=== PATIENT | female | born 1990 | race Two or more races ===

== ENCOUNTER 2022-05-12 18:09 | Emergency (ER) | payer OTHER ==
[~2022-05-12] VITALS: Ht 157.5 cm; Wt 79.1 kg
[2022-05-12] MEDS ORDERED: SODIUM CHLORIDE 0.9% 1,000 ML IV ONE ×3 (18:45→22:00)
[2022-05-12 19:10] LABS: BASOPHILS % (AUTO) 0.4 % (0.0-2.0); EOSINOPHILS % (AUTO) 0.3 % (1.0-6.0); HEMATOCRIT 32.4 % (36-46); HEMOGLOBIN 10.9 g/dL (12.0-16.0); LYMPHOCYTES # (AUTO) 1.7 K/uL (1.0-4.8); MEAN CORPUSCULAR HEMOGLOBIN 29.2 pg (26.0-34.0); MEAN CORPUSCULAR HGB CONC 33.7 G/dL (31.0-37.0); MEAN CORPUSCULAR VOLUME 87 fL (80-100); MONOCYTES # (AUTO) 0.6 K/uL (0.1-1.0); MONOCYTES % (AUTO) 5.2 % (2.0-9.0); NEUTROPHILS # (AUTO) 8.5 K/uL (1.8-7.7); NEUTROPHILS % (AUTO) 78.1 % (40.0-70.0); PLATELET COUNT (AUTO) 264 K/uL (150-450); RED BLOOD CELL COUNT(AUTO) 3.74 MIL/uL (4.00-5.20); RED CELL DISTRIBUTION WIDTH 13.3 % (11.5-14.5)
[2022-05-12 19:38] LABS: ANION GAP 10 mmol/L (8-16); CALCIUM, TOTAL 9.3 mg/dL (8.8-10.5); CARBON DIOXIDE 23 mmol/L (22-29); CHLORIDE 103 mmol/L (98-107); CREATININE 0.53 mg/dL (0.60-1.30); GLUCOSE,RANDOM 90 mg/dL (70-110); POTASSIUM 3.8 mmol/L (3.5-5.1); SODIUM SERUM 136 mmol/L (136-145); UREA NITROGEN, BLOOD 12 mg/dL (7-18)
[2022-05-12 19:39] LABS: GLOMERULAR FILTR. RATE CALC > 60 mL/min (>60)
[2022-05-12 19:44] LABS: ALANINE AMINOTRANSFERASE 19 U/L (12-78); ALBUMIN 3.3 g/dL (3.4-5.0); ALKALINE PHOSPHATASE 64 U/L (46-116); ASPARTATE AMINOTRANSFERASE 14 U/L (15-37); BILIRUBIN,TOTAL 0.1 mg/dL (0.1-1.0); TOTAL PROTEIN, SERUM 6.9 g/dL (6.4-8.2)
[2022-05-12] MEDS ORDERED: ACETAMINOPHEN 325 MG TABLET PO ONE (19:45)
[2022-05-12] MEDS ORDERED: IOHEXOL 350 MG/ML 100 ML VIAL ONE (20:37)
[2022-05-12] MEDS ORDERED: SODIUM CHLORIDE 0.9% 100 ML ONE (20:37)
[2022-05-12 22:51] VITALS: BP 121/77
[2022-05-12] MEDS ORDERED: LORazepam 0.5 MG TABLET PO ONE (23:15)
[2022-05-12] MEDS ORDERED: LORazepam 1 MG TABLET PO ONE (23:15)
== END 2022-05-13 02:50 | disposition home or self-care (01) ==
LOC: EMS 18:31
DX: O26.892 Other specified pregnancy related conditions, second trimester (principal); O21.8 Other vomiting complicating pregnancy; R07.89 Other chest pain; R00.0 Tachycardia, unspecified; Z3A.16 16 weeks gestation of pregnancy
CPT/HCPCS: 36415; 71045; 71275; 76801; 76817; 80053; 84484; 85025; 85379; 93005; 93970; 96360; 96361; 99285; J7030; J7050; Q9967